=== PATIENT | female | born 2000 | race Caucasian/White ===

== ENCOUNTER 2022-09-04 11:36 | Emergency (ER) | payer BC, SELFPAY ==
[2022-09-04 11:51] VITALS: BP 136/82; PULSE 102; RESP 16; TEMP 37.2; O2SAT 100
--- NOTE | 2022-09-04 12:08 | ED.BACK ---
HPI - Back Pain/Injury General Chief Complaint: Back Pain/Injury Stated Complaint: lower back pain Time Seen by Provider: 09/04/22 12:10 Source: patient and RN notes reviewed Mode of arrival: ambulatory Limitations: no limitations History of Present Illness HPI Narrative: 21-year-old female presents concern started this yesterday reports a dull ache at rest, sharp pain with bending, twisting, positioning. She denies loss of bowel or bladder function, perianal anesthesia, abdominal pain, fever or. Denies direct trauma. She reports she has been alternating Motrin and Tylenol and using he MD elicited complaint: back pain Related Data Home Medications Medication Instructions Recorded Confirmed etonogestrel 0.12 mg-ethinyl 1 vag ring vaginal MONTHLY 09/04/22 09/04/22 estradiol 0.015 mg/24 hr vaginal ring (EluRyng) Allergies Allergy/AdvReac Type Severity Reaction Status Date / Time No Known Allergies Allergy Unknown Verified 09/04/22 11:55 Review of Systems Review of Systems: CONSTITUTIONAL: Denies malaise, chills, sweats, or fever. CARDIOVASCULAR: Denies chest pain, palpitations, or edema. RESPIRATORY: Denies cough or dyspnea. GASTROINTESTINAL: Denies abdominal pain, nausea, vomiting, diarrhea, loss of bowel function GENITOURINARY: Denies dysuria, hematuria, frequency, loss of bladder function. SKIN: Denies rash or itching. MUSCULOSKELETAL: Reports left low back pain NEUROLOGIC: Denies numbness, weakness, or headache. All systems reviewed & are unremarkable except as noted in HPI and below PMFSH Comments At time of signature, agree with nursing past medical, surgical, social and family history. There is no relevant family history pertinent to the presenting complaint Exam Narrative: GENERAL: Well-appearing, well-nourished, and in no acute distress. HEAD: Normocephalic, atraumatic. EYES: PERRLA and EOMI. NECK: Supple. No lymphadenopathy. CHEST: Clear to auscultation. No respiratory distress. HEART: Regular rate and rhythm. Distal pulses palpable and equal, cap refill <3 seconds ABDOMEN: Soft, nontender, nondistended, normal active bowel sounds, no palpable or pulsatile masses. No CVA tenderness MUSCULOSKELETAL: Normal range of motion and strength in all extremities; 5/5 strength with hip flexion and extension, dorsiflexion and extension, knee flexion and extension, plantar flexion and extension. Normal sensation in dermatomal distributions with sensitivity to light touch and pain. No midline back tenderness to palpation. No paraspinal tenderness. Transfers from sitting to standing. SKIN: Warm, dry, no rash. No ecchymosis, erythema, open wounds to back. NEURO: No focal deficits. Alert and oriented x3. Reflexes intact. Normal gait. PSYCH: Normal mood and affect Course Course Emergency Course: Patient is aware of diagnosis, understands and agrees to treatment plan. Anticipatory guidance given. Patient agrees to follow-up as directed and is aware of reasons to seek care at the emergency department. Portions of this record may have been created with voice recognition software Level of Care: Express Care Visit Vital Signs Vital signs: Vital Signs Temperature 98.9 F 09/04/22 11:51 Pulse Rate 102 H 09/04/22 11:51 Respiratory Rate 16 09/04/22 11:51 Blood Pressure 136/82 09/04/22 11:51 Pulse Oximetry 100 09/04/22 11:51 Oxygen Delivery Room Air 09/04/22 11:51 Temperature 98.9 F 09/04/22 11:51 Pulse Rate 102 H 09/04/22 11:51 Respiratory Rate 16 09/04/22 11:51 Blood Pressure 136/82 09/04/22 11:51 Pulse Oximetry 100 09/04/22 11:51 Oxygen Delivery Room Air 09/04/22 11:51 Reviewed. MDM - Back Pain/Injury MDM Narrative Medical decision making narrative: No risk factors or findings concerning for epidural abscess, diskitis, vertebral osteomyelitis, cord compression, cauda equina, vertebral fracture or bone malignancy, AAA, or pyelonephritis. Patient instructed to consider
== END 2022-09-04 12:24 | disposition home or self-care (01) ==
PROVIDERS: Emergency Provider Nurse Practitioner
DX: M54.50 Low back pain, unspecified (principal)
CPT/HCPCS: 99213; G0463

== ENCOUNTER 2022-09-19 16:28 | Emergency (ER) | payer BC, SELFPAY ==
[2022-09-19 17:12] VITALS: BP 132/101; PULSE 98; RESP 16; TEMP 37.1; O2SAT 99
--- NOTE | 2022-09-19 19:00 | ED.BACK ---
HPI - Back Pain/Injury General Chief Complaint: Back Pain/Injury Stated Complaint: Herniated disc, ambulation issues Time Seen by Provider: 09/19/22 18:13 Source: patient Mode of arrival: ambulatory Limitations: no limitations History of Present Illness HPI Narrative: This is a 21-year-old female presents the ED with chief complaint of low back pain onset x2 weeks. Patient states that she was seen at an urgent care and diagnosed with herniated disc. States she reaggravated the back a few days ago when she sneezed. She has occasional bilateral lower leg radiating pains. Denies numbness or weakness of the lower extremities. Denies saddle anesthesia. Denies urinary retention or bowel incontinence. Patient states that the pain is the same in nature. Denies IV drug use, long-term steroid use, cancer history. States that she was given a Medrol Dosepak 2 weeks ago and felt like this helped a little bit. She was also given a prescription for muscle relaxers but does not feel that they helped. Related Data Home Medications Medication Instructions Recorded Confirmed etonogestrel 0.12 mg-ethinyl 1 vag ring vaginal MONTHLY 09/04/22 09/04/22 estradiol 0.015 mg/24 hr vaginal ring (EluRyng) Allergies Allergy/AdvReac Type Severity Reaction Status Date / Time No Known Allergies Allergy Unknown Verified 09/19/22 18:10 Review of Systems Review of Systems: CONSTITUTIONAL: Denies fever, chills, or sweats. EYES: Denies visual changes, redness, or discharge. SKIN: Denies rash or itching. MUSCULOSKELETAL: Endorses low back pain. Denies joint pain, or myalgia. NEUROLOGIC: Denies headache, numbness, dizziness, or weakness. PSYCHIATRIC: Denies anxiety or depression. Exam Narrative: GENERAL: Well-appearing, well-nourished, and in no acute distress. HEAD: Normocephalic, atraumatic. EYES: PERRLA and EOMI. EXTREMITIES: Spine: Paraspinal tenderness bilaterally in the lumbar spine. Straight leg raise on the right reproduces pain on the left. Straight leg raise on the left negative. MSK exam is otherwise benign. Normal range of motion. No edema. SKIN: Warm, dry, no rash. NEURO: Alert and oriented x3. No focal deficits. There is no saddle anesthesia. 5 out of 5 strength and sensation in upper and lower extremities. PSYCH: Normal mood and affect. Course Vital Signs Vital signs: Vital Signs Temperature 98.8 F 09/19/22 17:12 Pulse Rate 98 09/19/22 17:12 Respiratory Rate 16 09/19/22 17:12 Blood Pressure 132/101 H 09/19/22 17:12 Pulse Oximetry 99 09/19/22 17:12 Oxygen Delivery Room Air 09/19/22 17:12 Temperature 98.8 F 09/19/22 17:12 Pulse Rate 80 09/19/22 19:20 Respiratory Rate 19 09/19/22 19:20 Blood Pressure 123/87 09/19/22 19:20 Pulse Oximetry 97 09/19/22 19:20 Oxygen Delivery Room Air 09/19/22 17:12 MDM - Back Pain/Injury MDM Narrative Medical decision making narrative: This is a 21-year-old female with recently diagnosed herniated disc who presents to the ED with chief complaint of low back pain. Patient states this been going on for the last 2 weeks and she recently upset her back with a sneezing episode. Vitals are stable. Exam reveals a straight leg raise on the right that reproduces left-sided radiating back pain. Symptoms are consistent with herniated disc/sciatica. I offered to scan the patient declined. Feel this is reasonable as she does not have any red flags today. Pain is the same in nature. She is ambulatory. Dose of [place] given with moderate pain relief. She does not feel her muscle relaxer has been working very well so I will prescribe methocarbamol instead. Also given Medrol Dosepak. Supportive measures discussed and return precautions given. We discussed at length that she needs to see her PCP and will likely need physical therapy for this problem. If this does not work she may need referral to orthopedic spine, and may need an outpatient MRI. Patient under
[2022-09-19 19:20] VITALS: BP 123/87; PULSE 80; RESP 19; O2SAT 97
[2022-09-19] MEDS: HYDROcodone/acetaminophen (*CRX) 7.5-325 MG TABLET 1 TAB PO (19:25)
== END 2022-09-19 19:20 | disposition home or self-care (01) ==
PROVIDERS: Emergency Provider Physician Assistant
DX: S39.012A Strain of muscle, fascia and tendon of lower back, initial encounter (principal); M54.16 Radiculopathy, lumbar region; X50.0XXA Overexertion from strenuous movement or load, initial encounter
CPT/HCPCS: 81025; 99283; A9270

== ENCOUNTER 2023-07-20 18:12 | Emergency (ER) | payer BC, SELFPAY ==
--- NOTE | 2023-07-20 18:17 | ED.URI ---
HPI - URI/Sore Throat General Chief Complaint: Upper Respiratory Infection Stated Complaint: Sinus Time Seen by Provider: 07/20/23 18:16 Source: patient Mode of arrival: ambulatory Limitations: no limitations History of Present Illness HPI Narrative: Patient is a 22-year-old female who presents with sinus congestion and pressure for a week and a half. Reports ears started feeling full and having decreased hearing 4 days ago. Denies any fever, chills, cough, sore throat, nausea vomiting, diarrhea. Related Data Home Medications Medication Instructions Recorded Confirmed etonogestrel 0.12 mg-ethinyl 1 vag ring vaginal MONTHLY 09/04/22 07/20/23 estradiol 0.015 mg/24 hr vaginal ring (EluRyng) Allergies Allergy/AdvReac Type Severity Reaction Status Date / Time No Known Allergies Allergy Unknown Verified 07/20/23 18:19 Review of Systems Review of Systems: All systems reviewed & are unremarkable except as noted in HPI and below Constitutional: Constitutional: Denies body ache(s), Denies chills, Denies fatigue, Denies fever(s), Denies headache(s), Denies malaise and Denies weakness Eyes: Eyes: Denies blurry vision, Denies itchy eyes and Denies loss of vision ENT: Reports otalgia, Denies headache(s), Reports hearing loss, Reports nasal congestion, Denies sinus pain, Reports sinus pressure and Denies sore throat Cardiovascular: Cardiovascular: Denies chest pain, Denies irregular heart rhythm and Denies dyspnea Respiratory: Respiratory: Denies cough and Denies dyspnea Gastrointestinal: Gastrointestinal: Denies abdominal pain, Denies diarrhea, Denies nausea and Denies vomiting Musculoskeletal: Musculoskeletal: Denies back pain, Denies myalgias and Denies arthralgias Integumentary/Breasts: Skin/Breast: Denies pruritus and Denies rash Neurologic: Denies headache(s), Denies loss of vision and Denies weakness Psychiatric: Psychiatric: Reports no additional psychiatric complaints Endocrine: Endocrine: Denies fatigue Allergic/Immunologic: Allergic/Immunologic: Denies itchy eyes PMFSH Comments At time of signature, agree with nursing past medical, surgical, social and family history. There is no relevant family history pertinent to the presenting complaint. Exam Const: General: cooperative, healthy appearing, comfortable, no acute distress and well nourished Nutritional Appearance: well nourished Orientation/consciousness: patient oriented x3 Limitations: no limitations HENMT: Head: normal to inspection, normocephalic and atraumatic Ears: hearing grossly normal bilaterally, external ears normal, TM's normal bilaterally, EAC's normal and no periauricular adenopathy Face/Nose/Sinus: Normal external nose present, Abnormal mucous membranes and turbinates present erythematous bilateral and diffuse, normal facial exam, face symmetric and Facial tenderness on exam of face and sinuses Face and sinus: normal facial exam, sinuses nontender and face symmetric Mouth: Yes Normal oral and palatal mucosa present, Yes lip normal, Yes tongue normal, Yes Normal salivary glands and ducts present, Yes oropharynx normal and Yes moist mucous membranes Teeth and gingiva: dentition normal Throat: posterior oropharynx normal, tonsils normal and uvula midline Eyes: General: appearance normal, both eyes and all related structures Alignment and Position: alignment normal and position normal Periorbital: periorbital findings normal Eyelids: eyelids normal Pupils: Equal, round and reactive pupils present Neck: Neck: normal visual inspection, full ROM, no lymphadenopathy and supple Chest: Chest palpation & inspection: normal inspection of the chest and normal palpation of entire chest wall Resp: Effort & Inspection: normal respiratory effort and able to speak in complete sentences Auscultation: clear to auscultation bilaterally, no crackles, no rales, no rhonchi and no wheezes Cardio: Rate: regular rate Rhythm: regular rhythm Heart soun
[2023-07-20 18:24] VITALS: BP 137/82; PULSE 102; RESP 16; TEMP 36.6; O2SAT 100
== END 2023-07-20 19:00 | disposition home or self-care (01) ==
PROVIDERS: Emergency Provider Nurse Practitioner Family
DX: J01.20 Acute ethmoidal sinusitis, unspecified (principal)
CPT/HCPCS: 99213; G0463

== ENCOUNTER 2024-03-26 16:13 | Outpatient (CLI) | payer BC, SELFPAY ==
--- NOTE | ~2024-03-26 | XR_ITS ---
EXAMINATION: XR lumbar spine 2-3V DATE: 03/26/2024 17:00 INDICATION: Lumbar radicular symptoms. Chronic low back pain radiating down the left leg. TECHNIQUE: 3 views of lumbar spine including standing views were obtained. COMPARISON: None. FINDINGS: There is a degrees levocurvature of thoracolumbar spine. Vertebral body heights are normal. There is mildly decreased disc height at L2-L3. The facet joints are unremarkable. IMPRESSION: 1. Mild degenerative disc disease at L2-L3. Reviewed, dictated and finalized at location A.
== END 2024-03-26 16:14 | disposition home or self-care (01) ==
LOC: GOSHIMG 16:15
PROVIDERS: Visit Provider Chiropractor
DX: M51.369 Other intervertebral disc degeneration, lumbar region without mention of lumbar back pain or lower extremity pain (principal)
CPT/HCPCS: 72100